=== PATIENT | male | born 1930 | race Caucasian/White ===

== ENCOUNTER 2019-08-21 16:37 | Observation (INO) | payer MEDICARE ==
[~2019-08-21] VITALS: Ht 177.8 cm; Wt 78.0 kg
[~2019-08-21 16:37] MED LIST changes: -ATOR20 PO; -EXFORGE PO; -Lopressor 25 mg25 MG PO; -MIRALAX17 G1 PO; -Vitamin D2000 UNIT PO
[2019-08-21] MEDS ORDERED: EXFORGE PO (17:04)
[2019-08-21] MEDS ORDERED: ATOR20 PO (17:05)
[2019-08-21 17:25] LABS: International Normalized Ratio 3.34; Prothrombin Time Results 33.4 Sec (9.7-11.5)
[2019-08-21 17:28] LABS: Anion Gap 6 mmol/L (6-16); Blood Urea Nitrogen 23 mg/dL (8-24); Bun/Creatinine Ratio 29.3 (12.0-20.0); CO2, Blood 27 mmol/L (21-32); Calcium, Blood 8.4 mg/dL (8.5-10.1); Chloride, Blood 102 mmol/L (98-108); Creatinine, Blood 0.78 mg/dL (0.60-1.20); Glomerular Filtration Rate >60 (60-); Glucose, Blood 149 mg/dL (70-99); Sodium, Blood 135 mmol/L (136-145); Troponin I 0.139 ng/mL (0.000-0.040)
[2019-08-21] MEDS ORDERED: WARF2.5 PO (20:57)
[2019-08-21] MEDS ORDERED: MIRALAX17 G1 PO (20:58)
[2019-08-21] MEDS ORDERED: Vitamin D2000 UNIT PO (21:00)
--- NOTE | 2019-08-22 04:30 | NUR ---
SHIFT SUMMARY ASSUMED CARE OF PT AT 2014. PT IS A/OX4, DENIES N.T IN EXTREMITIES, PT IS INDEPENDENT WITH ALL CARE AND ADLS. 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 LUNG SOUNDS REGULAR, DENIES SOB AT THIS TIME. PT HAS A UROSTOMY, PT BROUGHT HIS OWN SUPPLIES AND CAN INDEPENDENTLY ASSEMBLE IT, STOMA IS RED AND MOIST. 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 NO ACUTE EVENTS DURING THE NIGHT. PT SLEPT MOST OF THE NIGHT. CALL LIGHT IN REACH, BED IN LOWEST POSITION, WILL CONTINUE TO MONITOR UNTIL DAYSHIFT NURSE ARRIVES.
[2019-08-22 07:27] LABS: BASOPHILS ABSOLUTE AUTO 0.05 K/mm3 (0.00-0.23); BASOPHILS PERCENT AUTO 1 % (0-2); EOSINOPHILS ABSOLUTE AUTO 0.17 K/mm3 (0.00-0.68); EOSINOPHILS PERCENT AUTO 2 % (0-6); Hematocrit 33.1 % (37.0-53.0); Hemoglobin 10.3 g/dL (13.5-17.5); IMMATURE GRAN ABSOLUTE AUTO 0.02 K/mm3 (0.00-0.10); IMMATURE GRAN PERCENT AUTO 0 % (0-1); LYMPHOCYTES ABSOLUTE AUTO 1.42 K/mm3 (0.84-5.20); LYMPHOCYTES PERCENT AUTO 18 % (21-46); MONOCYTES ABSOLUTE AUTO 0.98 K/mm3 (0.16-1.47); MONOCYTES PERCENT AUTO 12 % (4-13); Mean Corpuscular HGB 25.1 pg (26.0-34.0); Mean Corpuscular HGB Conc 31.1 g/dL (31.5-36.5); Mean Corpuscular Volume 81 fL (80-100); Mean Platelet Volume 10.1 fL (9.1-12.4); NEUTROPHILS ABSOLUTE AUTO 5.43 K/mm3 (1.96-9.15); NEUTROPHILS PERCENT AUTO 67 % (41-73); Platelet Count 222 K/mm3 (150-400); RDW Coefficient Variation 14.5 % (11.7-14.2); RDW Standard Deviation 42.9 fL (35.1-46.3); Red Blood Cell Count 4.11 M/mm3 (4.30-5.90); White Blood Cell Count 8.07 K/mm3 (4.00-11.30)
[2019-08-22 07:44] LABS: Anion Gap 5 mmol/L (6-16); Blood Urea Nitrogen 18 mg/dL (8-24); Bun/Creatinine Ratio 26.5 (12.0-20.0); CO2, Blood 29 mmol/L (21-32); Calcium, Blood 8.3 mg/dL (8.5-10.1); Chloride, Blood 103 mmol/L (98-108); Creatinine, Blood 0.68 mg/dL (0.60-1.20); Glomerular Filtration Rate >60 (60-); Glucose, Blood 94 mg/dL (70-99); Magnesium, Blood 2.1 mg/dL (1.6-2.4); Potassium, Blood 3.9 mmol/L (3.5-5.5); Sodium, Blood 137 mmol/L (136-145)
[2019-08-22 07:49] LABS: International Normalized Ratio 3.23; Prothrombin Time Results 32.3 Sec (9.7-11.5)
[2019-08-22] MEDS ORDERED: EXFORGE PO (09:46)
[2019-08-22] MEDS ORDERED: Lopressor 25 mg25 MG PO (09:47)
--- NOTE | 2019-08-22 10:30 | NUR ---
SHIFT SUMMARY PT A&OX4, VSS, LEFT FLOOR VIA WC WITH ALL PERSONAL POSSESSIONS TO GO HOME. DC INSTRUCTIONS PROVIDED. PT REP UNDERSTANDING THOSE INSTRUCTIONS INCLUDING FU WITH PCP AND CARDIOLOGY; CHANGE IN MEDS. IV DC'D.
== END 2019-08-22 10:23 | disposition home or self-care (01) ==
LOC: ER 16:37 → MEDS 16:38
PROVIDERS: Emergency Medicine; ADMIT Internal Medicine
DX: I48.0 Paroxysmal atrial fibrillation (principal); I10 Essential (primary) hypertension; I25.10 Atherosclerotic heart disease of native coronary artery without angina pectoris; I25.2 Old myocardial infarction; Z95.5 Presence of coronary angioplasty implant and graft; Z85.51 Personal history of malignant neoplasm of bladder; Z93.6 Other artificial openings of urinary tract status; Z79.899 Other long term (current) drug therapy; Z88.5 Allergy status to narcotic agent; Z79.01 Long term (current) use of anticoagulants
CPT/HCPCS: 36415; 80048; 83735; 84443; 84484; 85025; 85610; 93005; 93010; 99284-25; A9270-GY; G0378

== ENCOUNTER → 2019-08-21 | Outpatient (CLI) | payer MEDICARE ==
[~2019-08-21] MED LIST: ACET325 PO; AMIO200 PO; AMIODARONE PO; AMLODIPINE/VALSARTAN PO; ATOR20 PO; CHOL10002 PO; CIPR500 PO; CLIN150 PO; Cordarone PO; EXFORGE; EXFORGE PO; EZET10-10 PO; EZET10-40 PO; EZETIMIBE; FINA5 PO; HYDCHL12.5 PO; Lopressor 25 mg25 MG PO; MIRALAX17 G1 PO; OXYC5 PO; POTA10T PO; POTCHL10ER PO; SENN187 PO; VALSARTAN; VITAMINS; Vitamin D2000 UNIT PO; WARF2.5 PO; WARF5 PO
[2019-08-21 12:38] LABS: BASOPHILS ABSOLUTE AUTO 0.05 K/mm3 (0.00-0.23); BASOPHILS PERCENT AUTO 0 % (0-2); EOSINOPHILS ABSOLUTE AUTO 0.03 K/mm3 (0.00-0.68); EOSINOPHILS PERCENT AUTO 0 % (0-6); Hematocrit 35.8 % (37.0-53.0); Hemoglobin 11.3 g/dL (13.5-17.5); IMMATURE GRAN ABSOLUTE AUTO 0.05 K/mm3 (0.00-0.10); IMMATURE GRAN PERCENT AUTO 0 % (0-1); LYMPHOCYTES PERCENT AUTO 7 % (21-46); MONOCYTES PERCENT AUTO 8 % (4-13); Mean Corpuscular HGB 25.3 pg (26.0-34.0); Mean Corpuscular HGB Conc 31.6 g/dL (31.5-36.5); Mean Corpuscular Volume 80 fL (80-100); Mean Platelet Volume 10.5 fL (9.1-12.4); NEUTROPHILS PERCENT AUTO 84 % (41-73); Platelet Count 272 K/mm3 (150-400); RDW Coefficient Variation 14.6 % (11.7-14.2); RDW Standard Deviation 42.9 fL (35.1-46.3); Red Blood Cell Count 4.46 M/mm3 (4.30-5.90); White Blood Cell Count 11.13 K/mm3 (4.00-11.30)
[2019-08-21 13:54] LABS: Troponin I 0.06 ng/mL (0.000-0.040)
== END | disposition home or self-care (01) ==
LOC: LAB 12:14 → LAB SHORT 12:14
DX: D64.9 Anemia, unspecified (principal); I48.91 Unspecified atrial fibrillation
CPT/HCPCS: 82550; 84484; 85025